=== PATIENT | female | born 2000 | race Two or more races ===

== ENCOUNTER 2023-09-08 11:52 | Emergency (ER) | payer SELFPAY ==
[2023-09-08] MEDS ORDERED: Ketorolac 30 MG/ML SDV IM ONE (13:02)
== END 2023-09-08 13:31 | disposition home or self-care (01) ==
LOC: VM.ED 11:52
DX: R07.89 Other chest pain (principal); R07.81 Pleurodynia
CPT/HCPCS: 71101-LT; 96372; 99283; J1885